=== PATIENT | male | born 1945 | race Caucasian/White ===

== ENCOUNTER 2016-07-19 11:43 | Observation (INO) | payer OTHER, BC ==
[~2016-07-19] VITALS: Ht 193 cm; Wt 111.4 kg
[~2016-07-19 11:43] MED LIST: ASPIR 8181 M1 PO; ASPIR 8181 MG PO; CALCIUM + D 601 EACH PO; CARVEDILOL3.125 MG PO; CARVEDILOL6.25 MG PO; CIPRO500 MG PO; COREG6.25 M1 PO; DIOVAN320 MG PO; ECOTRIN325 MG PO; ELIQUIS5 MG PO; FENOFIBRATE160 M1 PO; FIORICET,ESG1 TABLET PO; FISH OIL SOFTG1 EAC1 PO; FLAGYL500 MG PO; FOLIC ACID1 MG PO; GINKGO BILOBA40 MG PO; GREEN TEA250 MG PO; HAIR, SKIN & N1 EAC1 PO; LABETALOL HCL200 MG PO; LIPITOR40 MG PO; LIPITOR80 MG; LISINOPRIL-HCT1 EAC3 PO; LISINOPRIL20 MG PO; NAPROXEN500 MG PO; NATURAL VITA100 UNIT PO; NIFEDICAL XL30 MG PO; NITROSTAT0.4 MG SL; NORVASC5 M1; OMEPRAZOLE20 MG PO; PAROXETINE HCL30 MG PO; PLAVIX75 MG PO; VITAMIN B-12250 MCG PO; VITAMIN B-6500 MG PO; ZESTORETIC 20-1 EAC1 NG; Zestril,Prinivil PO
[2016-07-19 13:09] LABS: HEMATOCRIT 38.6 % (38.0-50.0); MCH 31.7 PG (29.0-34.0); MCHC 34.2 G/DL (30.0-36.0); MCV 92.8 FL (86-99); MEAN PLAT.VOLUME 9.9 uM^3 (9.0-12.4); PLATELET COUNT 258 K/uL (156-360); RBC DIS.WIDTH-CV 12.4 % (11.8-14.6); RBC DIS.WIDTH-SD 40.8 % (39-53); RED BLOOD COUNT 4.16 M/uL (4.00-5.50); WHITE BLOOD COUNT 4.8 K/uL (4.1-10.2)
[2016-07-19 13:16] LABS: CHLORIDE 104 mEq/L (99-109); D-DIMER ELISA 0.97 mg/L FEU (< 0.57); SODIUM 139 mEq/L (136-147)
[2016-07-19 13:19] LABS: GLUCOSE 151 mg/dL (70-99)
[2016-07-19 13:20] LABS: ANION GAP 10 MEQ/L (2-14)
[2016-07-19 13:21] LABS: TOTAL BILIRUBIN 0.5 mg/dL (0.0-1.0)
[2016-07-19 13:22] LABS: ALKALINE PHOSPHATASE 64 IU/L (3-129); GFR ESTIMATE (CALCULATED) > 59 mL/min/
[2016-07-19 13:23] LABS: UREA NITROGEN (BUN) 14 mg/dL (9-23)
[2016-07-19 13:25] LABS: CREATINE KINASE 66 IU/L (1-294); TOTAL CK 66 IU/L (1-294)
[2016-07-19 13:26] LABS: TROP-I INTERPRETATION NEGATIVE; TROPONIN-I 0.02 ng/mL (0.0-0.30)
[2016-07-19 13:34] LABS: CK-MB 2.1 ng/mL (0.0-4.9)
[2016-07-19] MEDS ORDERED: LISINOPRIL-HCT1 EAC3 PO (13:48)
[2016-07-19] MEDS ORDERED: LO-DOSE ASPIRIN81 M2 PO (13:49)
[2016-07-19] MEDS ORDERED: OMEPRAZOLE40 M1 PO (13:50)
[2016-07-19 16:00] VITALS: BP 127/79
[2016-07-19 19:44] LABS: TROP-I INTERPRETATION NEGATIVE; TROPONIN-I 0.01 ng/mL (0.0-0.30)
[2016-07-19 19:51] VITALS: BP 121/68
[2016-07-19 23:57] VITALS: BP 114/70
[2016-07-20] VITALS: BP 121/58
[2016-07-20 01:53] LABS: TROP-I INTERPRETATION NEGATIVE; TROPONIN-I 0.01 ng/mL (0.0-0.30)
[2016-07-20 03:31] VITALS: BP 110/66
[2016-07-20 07:54] VITALS: BP 122/73
[2016-07-20] MEDS ORDERED: ENDOCET 5-3251 EACH PO (11:36)
[2016-07-20 12:07] VITALS: BP 135/72
== END 2016-07-20 14:42 | disposition home or self-care (01) ==
LOC: EME → EDBD 11:43 → EDOF 14:39 → 5WEST 14:39 → EDOF 14:39 → 5WEST 15:51
PROVIDERS: Emergency Medicine; Internal Medicine
DX: R07.89 Other chest pain (principal); R91.1 Solitary pulmonary nodule; I25.10 Atherosclerotic heart disease of native coronary artery without angina pectoris; Z98.61 Coronary angioplasty status; I25.5 Ischemic cardiomyopathy; I71.4 Abdominal aortic aneurysm, without rupture; I71.2 Thoracic aortic aneurysm, without rupture; I10 Essential (primary) hypertension; E78.5 Hyperlipidemia, unspecified; I48.0 Paroxysmal atrial fibrillation; D68.9 Coagulation defect, unspecified; Z95.820 Peripheral vascular angioplasty status with implants and grafts; Z88.0 Allergy status to penicillin; Z80.0 Family history of malignant neoplasm of digestive organs
CPT/HCPCS: 71010; 71275; 80053; 82550; 82553; 84484; 85027; 85379; 93005; 99281; 99285; G0378; J2270; J2405

== ENCOUNTER 2017-10-11 20:01 | Observation (INO) | payer OTHER, BC ==
[~2017-10-11] VITALS: Ht 193 cm; Wt 111.0 kg
[~2017-10-11 20:01] MED LIST changes: +ENDOCET 5-3251 EACH PO; +LO-DOSE ASPIRIN81 M2 PO; +OMEPRAZOLE40 M1 PO
[2017-10-11 20:58] LABS: HEMATOCRIT 37.7 % (38.0-50.0); HEMOGLOBIN 13.4 G/DL (12.5-16.6); MCH 32.7 PG (29.0-34.0); MCHC 35.5 G/DL (30.0-36.0); PLATELET COUNT 262 K/uL (156-360); RBC DIS.WIDTH-CV 11.9 % (11.8-14.6); RBC DIS.WIDTH-SD 39.9 % (39-53); WHITE BLOOD COUNT 6.2 K/uL (4.1-10.2)
[2017-10-11 21:04] LABS: INTER. NORMALIZED RATIO 1.1
[2017-10-11 21:09] LABS: ALBUMIN 3.8 g/dL (3.2-4.8); CHLORIDE 102 mEq/L (99-109); POTASSIUM 3.9 mEq/L (3.7-5.4); SODIUM 136 mEq/L (136-147)
[2017-10-11 21:12] LABS: TOTAL PROTEIN 6.5 g/dL (6.4-8.3)
[2017-10-11 21:13] LABS: TOTAL BILIRUBIN 0.3 mg/dL (0.0-1.0)
[2017-10-11 21:15] LABS: ALKALINE PHOSPHATASE 87 IU/L (3-129); GFR ESTIMATE (CALCULATED) > 59 mL/min/ (58.99-99999)
[2017-10-11 21:16] LABS: UREA NITROGEN (BUN) 15 mg/dL (9-23)
[2017-10-11 21:17] LABS: AST (GOT) 17 IU/L (2-34)
[2017-10-11 21:18] LABS: ALT (GPT) 21 IU/L (3-49)
[2017-10-11 21:19] LABS: LIPASE 17 U/L (1.0-51.0); TROP-I INTERPRETATION NEGATIVE; TROPONIN-I < 0.01 ng/mL (0.0-0.30)
[2017-10-11 21:37] LABS: GLUCOSE 405 mg/dL (70-99)
[2017-10-12 03:32] LABS: TROP-I INTERPRETATION NEGATIVE; TROPONIN-I < 0.01 ng/mL (0.0-0.30)
[2017-10-12] MEDS ORDERED: AMLODIPINE BESY10 MG PO (09:02)
[2017-10-12] MEDS ORDERED: CARVEDILOL6.25 MG PO (09:04)
[2017-10-12] MEDS ORDERED: LISINOPRIL20 MG PO (09:04)
[2017-10-12] MEDS ORDERED: NITROGLYCERIN0.4 MG SL (09:04)
[2017-10-12] MEDS ORDERED: ZESTORETIC 20-1 EAC1 PO (09:05)
[2017-10-12] MEDS ORDERED: PAXIL30 MG PO (09:06)
[2017-10-12] MEDS ORDERED: ELIQUIS5 MG PO (09:06)
[2017-10-12] MEDS ORDERED: OMEPRAZOLE40 M1 PO (09:07)
[2017-10-12] MEDS ORDERED: ASPIRIN81 M2 PO (09:07)
[2017-10-12] MEDS ORDERED: MEN 50 PLUS MU1 EACH PO (09:07)
[2017-10-12 09:45] LABS: TROP-I INTERPRETATION NEGATIVE; TROPONIN-I 0.01 ng/mL (0.0-0.30)
[2017-10-12 10:00] LABS: HEMOGLOBIN A1c (GLYCOHEMOGLOB) 11.4 % (Below 5.7)
[2017-10-12 11:15] VITALS: BP 152/80
[2017-10-12] MEDS ORDERED: GLUCOPHAGE850 MG PO (11:42)
[2017-10-12] MEDS ORDERED: JANUVIA25 M1 PO (11:42)
[2017-10-12] MEDS ORDERED: CARVEDILOL12.5 MG PO (11:42)
[2017-10-12] MEDS ORDERED: IMDUR30 MG PO (11:42)
== END 2017-10-12 11:45 | disposition home or self-care (01) ==
LOC: EME 20:01 → EDOF 10-12 00:58 → ENRESERV 10-12 00:58 → CANRESERV 10-12 11:08 → ENRESERV 10-12 11:08 → EDOF 10-12 11:45
PROVIDERS: Emergency Medicine; Hospitalist
DX: R07.89 Other chest pain (principal); E11.65 Type 2 diabetes mellitus with hyperglycemia; I10 Essential (primary) hypertension; I25.119 Atherosclerotic heart disease of native coronary artery with unspecified angina pectoris; Z95.1 Presence of aortocoronary bypass graft; I25.5 Ischemic cardiomyopathy; I25.2 Old myocardial infarction; R94.31 Abnormal electrocardiogram [ECG] [EKG]; F32.9 Major depressive disorder, single episode, unspecified; E78.5 Hyperlipidemia, unspecified; I48.92 Unspecified atrial flutter; Z86.19 Personal history of other infectious and parasitic diseases; I48.0 Paroxysmal atrial fibrillation; Z95.828 Presence of other vascular implants and grafts; I71.2 Thoracic aortic aneurysm, without rupture; I71.4 Abdominal aortic aneurysm, without rupture; Z88.0 Allergy status to penicillin; Z80.0 Family history of malignant neoplasm of digestive organs; Z80.8 Family history of malignant neoplasm of other organs or systems
CPT/HCPCS: 71045; 71275; 80053; 82948; 83036; 83690; 84484; 85027; 85610; 85730; 86850; 86900; 86901; 93005; 99281; 99285; G0378; J3010; J7030